=== PATIENT | female | born 1995 | race African-American/Black ===

== ENCOUNTER 2017-05-09 13:12 | Emergency (ER) | payer SELFPAY ==
[2017-05-09] MEDS ORDERED: Benzonatate 100 MG CAP ONE (13:34)
[2017-05-09] MEDS ORDERED: AMOXicillin 250 MG CAP ONE (13:34)
== END 2017-05-09 13:55 | disposition home or self-care (01) ==
LOC: MADERS 13:12
DX: J02.9 Acute pharyngitis, unspecified (principal)
CPT/HCPCS: 99283